=== PATIENT | male | born 1980 | race Two or more races ===

== ENCOUNTER 2024-06-16 13:56 | Emergency (ER) | payer BC ==
[~2024-06-16] VITALS: Ht 180.3 cm; Wt 90.7 kg
[2024-06-16 14:06] VITALS: BP 124/74; PULSE 84; RESP 18; TEMP 98.3; O2SAT 96
== END 2024-06-16 14:20 ==
LOC: MED 13:56
DX: S09.92XA Unspecified injury of nose, initial encounter (principal); Z02.89 Encounter for other administrative examinations; Y04.0XXA Assault by unarmed brawl or fight, initial encounter; Y92.89 Other specified places as the place of occurrence of the external cause; Y93.89 Activity, other specified; Y99.8 Other external cause status
CPT/HCPCS: 99283